=== PATIENT | female | born 1945 | race African-American/Black ===

== ENCOUNTER 2024-11-14 14:34 | Inpatient (IN) | payer MEDICARE, MEDICAID ==
[~2024-11-14] VITALS: Ht 170.2 cm; Wt 94.0 kg
[2024-11-14 14:49] VITALS: O2SAT 100
[2024-11-14] MEDS: IOHEXOL-350 100 ML BOTTLE ONE (15:16)
[2024-11-14 15:22] LABS: CHLORIDE 106 mEq/L (98-107); POTASSIUM 5.4 mEq/L (3.5-5.1); SODIUM 141 mEq/L (136-145)
[2024-11-14 15:23] LABS: CARBON DIOXIDE 28 mEq/L (21-32)
[2024-11-14 15:24] LABS: CALCIUM 9.1 mg/dL (8.7-10.4)
[2024-11-14 15:28] LABS: CREATININE 0.6 mg/dL (0.6-1.0); GLUCOSE 106 mg/dL (70-105); UREA NITROGEN BLOOD 15 mg/dL (9-23)
[2024-11-14 15:29] LABS: BASOPHILS % 0.4 % (0.0-2.0); EOSINOPHILS % 0.9 % (0.0-5.0); HEMATOCRIT. 38.7 % (36.0-48.0); HEMOGLOBIN. 12.7 g/dL (12.0-16.0); LYMPHOCYTES % 30.6 % (20.0-50.0); MEAN CORPUSCULAR HEMOGLOBIN 28.2 pg (28.0-32.0); MEAN CORPUSCULAR HGB CONC 32.8 g/dL (31.0-37.0); MEAN CORPUSCULAR VOLUME 85.9 fL (81.0-99.0); MEAN PLATELET VOLUME 9.4 fl (7.4-10.4); MONOCYTES % 8.9 % (2.0-8.0); NEUTROPHILS % 59.2 % (40.0-76.0); PLATELET 226 x1000/uL (130-400); RED BLOOD CELL COUNT 4.51 mill/uL (4.2-5.4); RED CELL DISTRIBUTION WIDTH 15.9 % (11.6-14.6); TROPONIN I HIGH SENSITIVITY 5 ng/L (3.0-34); WHITE BLOOD COUNT 8.6 x1000/uL (4.5-11.0)
[2024-11-14 15:35] LABS: ETHANOL BLOOD < 10 mg/dL (<10)
[2024-11-14 21:36] VITALS: BP 137/63; PULSE 74; RESP 18; TEMP 36.4; O2SAT 97
[2024-11-15] VITALS: BP 130/62; PULSE 67; RESP 20; TEMP 36.4; O2SAT 98
[2024-11-15] MEDS ORDERED: HYDR50TA39 PO (00:26)
[2024-11-15] MEDS ORDERED: AMI2 PO (00:26)
[2024-11-15] MEDS ORDERED: METO25TA6 PO (00:26)
[2024-11-15] MEDS ORDERED: LOSA100T33 PO (00:26)
[2024-11-15] MEDS ORDERED: APIX2.5T PO (00:26)
[2024-11-15] MEDS ORDERED: AMLO10TA80 PO (00:26)
[2024-11-15] MEDS ORDERED: DOCUSATE SODIUM 100MG CAPSULE PO PRN (00:30)
[2024-11-15] MEDS ORDERED: CLONIDINE 0.1MG TABLET PO PRN (00:30)
[2024-11-15] MEDS ORDERED: ONDANSETRON HCL 4MG/2ML INJ IV PRN (00:30)
[2024-11-15] MEDS ORDERED: IPRATROPIUM/ALBUTEROL 0.5-3(2.5)MG/3ML NEB NEB PRN (00:30)
[2024-11-15 04:00] VITALS: BP 109/41; PULSE 64; RESP 18; TEMP 36.4; O2SAT 99
[2024-11-15 05:58] LABS: PROTHROMBIN TIME 11.3 sec (9.6-11.0)
[2024-11-15 06:03] LABS: TROPONIN I HIGH SENSITIVITY 10 ng/L (3.0-34)
[2024-11-15 08:00] VITALS: BP 105/39; PULSE 66; RESP 20; TEMP 36.6; O2SAT 100
[2024-11-15] MEDS ORDERED: ENOXAPARIN 30MG/0.3ML SYR SUBCUT SCH (09:00)
[2024-11-15] MEDS: LOSARTAN 100 MG TABLET PO SCH (09:00)
[2024-11-15] MEDS: AMLODIPINE 10MG TABLET PO SCH (09:00)
[2024-11-15] MEDS: METOPROLOL TARTRATE 25MG TABLET PO SCH (09:00)
[2024-11-15] MEDS: HYDRALAZINE HCL 50MG TABLET PO SCH (09:00)
[2024-11-15] MEDS: ASPIRIN 81MG TABLET PO SCH (10:23)
[2024-11-15] MEDS: PANTOPRAZOLE SODIUM 40 MG/VIAL IV SCH (10:24)
[2024-11-15] MEDS: AMIODARONE 200MG TABLET PO SCH (10:24)
[2024-11-15] MEDS: APIXABAN 2.5 MG TABLET PO SCH (10:24)
[2024-11-15 12:00] VITALS: BP 95/33; PULSE 71; RESP 20; TEMP 36.4; O2SAT 98
[2024-11-15] MEDS: CLOPIDOGREL 75MG TABLET PO SCH (14:13)
[2024-11-15 16:00] VITALS: BP 126/48; PULSE 20; RESP 20; TEMP 37.1; O2SAT 97
[2024-11-15] MEDS ORDERED: ASPIRIN 81MG EC TABLET PO SCH (16:30)
[2024-11-15] MEDS ORDERED: CLOPIDOGREL 75MG TABLET PO SCH (16:30)
[2024-11-15 18:58] LABS: TROPONIN I HIGH SENSITIVITY 8 ng/L (3.0-34)
[2024-11-15] MEDS ORDERED: BENZ1LOZ73 MM (19:57)
[2024-11-15] MEDS ORDERED: CLON1PAT12 TP (19:57)
[2024-11-15] MEDS ORDERED: HALO100A IM (19:57)
[2024-11-15] MEDS ORDERED: LATA2.5D14 EACHEYE (19:57)
[2024-11-15] MEDS ORDERED: CHOL-36 PO (19:57)
[2024-11-15] MEDS ORDERED: DOCU-405 PO (19:57)
[2024-11-15] MEDS ORDERED: BISA-81 PO (19:57)
[2024-11-15 20:00] VITALS: BP 93/45; PULSE 75; RESP 20; TEMP 36.7; O2SAT 100
[2024-11-15] MEDS ORDERED: ATORVASTATIN CALCIUM 40MG TABLET PO SCH (21:00)
[2024-11-15] MEDS ORDERED: TOPUD PO (21:26)
[2024-11-15] MEDS ORDERED: OCD PO (21:27)
[2024-11-15] MEDS: ATORVASTATIN CALCIUM 40MG TABLET PO SCH (21:56)
[2024-11-16] VITALS: BP 101/35; PULSE 55; RESP 18; TEMP 36.5; O2SAT 97
[2024-11-16 08:00] VITALS: BP 127/56; PULSE 66; RESP 18; TEMP 36.4; O2SAT 99
[2024-11-16 12:00] VITALS: BP 107/57; PULSE 95; RESP 18; TEMP 36.5; O2SAT 100
[2024-11-16 16:00] VITALS: BP 115/58; PULSE 98; RESP 18; TEMP 36.5; O2SAT 99
[2024-11-16 20:00] VITALS: BP 133/59; PULSE 72; RESP 18; TEMP 36.7; O2SAT 100
[2024-11-17] VITALS: BP 113/52; PULSE 56; RESP 18; TEMP 36.5; O2SAT 98
[2024-11-17 04:00] VITALS: BP 126/45; PULSE 56; RESP 18; TEMP 36.7; O2SAT 99
[2024-11-17 08:00] VITALS: BP 145/67; PULSE 89; RESP 18; TEMP 36.4; O2SAT 100
[2024-11-17 12:00] VITALS: BP 148/74; PULSE 65; RESP 18; TEMP 36.1; O2SAT 100
[2024-11-17] MEDS ORDERED: ASPI-1160 PO (12:50)
[2024-11-17] MEDS ORDERED: LIP40 PO (12:50)
[2024-11-17] MEDS ORDERED: CLOP-31 PO (12:50)
[2024-11-17 16:00] VITALS: BP 139/71; PULSE 74; RESP 18; TEMP 36.4; O2SAT 99
[2024-11-17 20:00] VITALS: BP 149/58; PULSE 84; RESP 18; TEMP 36.2; O2SAT 97
[2024-11-18 04:00] VITALS: BP 148/54; PULSE 51; RESP 19; TEMP 36.5; O2SAT 100
[2024-11-18 08:00] VITALS: BP 149/61; PULSE 65; RESP 18; TEMP 36; O2SAT 99
[2024-11-18 12:00] VITALS: BP 133/68; PULSE 74; RESP 18; TEMP 36.1; O2SAT 98
[2024-11-18 16:00] VITALS: BP 140/78; PULSE 79; RESP 20; TEMP 36.6; O2SAT 99
[2024-11-18 20:00] VITALS: BP 148/64; PULSE 65; RESP 18; TEMP 37; O2SAT 100
[2024-11-18] MEDS: ZOLPIDEM TARTRATE 5MG TABLET PO PRN (20:26)
[2024-11-19] VITALS: BP 134/52; PULSE 61; RESP 18; TEMP 36.6; O2SAT 100
[2024-11-19 04:00] VITALS: BP 130/40; PULSE 56; RESP 18; TEMP 36.7; O2SAT 100
[2024-11-19 08:03] VITALS: BP 155/69; PULSE 67; RESP 20; TEMP 36.3; O2SAT 100
== END 2024-11-19 08:20 | DRG 64 ==
LOC: ER 14:43 → EDBEDREQ 14:49 → EDBEDREQTM 16:02 → 7WST 21:51
PROVIDERS: ADMIT Internal Medicine; ATTEND Internal Medicine
DX: I63.89 Other cerebral infarction (principal); G82.50 Quadriplegia, unspecified; F03.93 Unspecified dementia, unspecified severity, with mood disturbance; E78.5 Hyperlipidemia, unspecified; F20.9 Schizophrenia, unspecified; F32.A Depression, unspecified; H40.9 Unspecified glaucoma; R29.716 NIHSS score 16; I48.0 Paroxysmal atrial fibrillation; N18.9 Chronic kidney disease, unspecified; I12.9 Hypertensive chronic kidney disease with stage 1 through stage 4 chronic kidney disease, or unspecified chronic kidney disease; R13.10 Dysphagia, unspecified; R29.810 Facial weakness; R47.01 Aphasia; R47.1 Dysarthria and anarthria; Z74.01 Bed confinement status; Z79.899 Other long term (current) drug therapy
CPT/HCPCS: 36415; 70496; 70498; 70551; 71045; 80048; 80061; 80320; 83036; 84484; 85025; 92523; 92610; 93005; 93306; 93970; 97165; 99285; J2470; Q9967; G0480